=== PATIENT | male | born 1965 | race Caucasian/White ===

== ENCOUNTER 2020-09-13 18:55 | Emergency (ER) | payer OTHER ==
[~2020-09-13] VITALS: Ht 178 cm; Wt 122.5 kg
[2020-09-13 19:35] LABS: ALBUMIN 3.7 GM/DL (3.2-4.5); BASOPHILS % (AUTO) 0 % (0-10); EOSINOPHILS % (AUTO) 0 % (0-10); HEMATOCRIT 48 % (40-54); HEMOGLOBIN 16.6 g/dL (13.3-17.7); LYMPHOCYTES # (AUTO) 1.6 10^3/uL (1.0-4.0); LYMPHOCYTES % (AUTO) 22 % (12-44); MEAN CORPUSCULAR HEMOGLOBIN 31 pg (25-34); MEAN CORPUSCULAR HGB CONC 34 g/dL (32-36); MEAN CORPUSCULAR VOLUME 90 fL (80-99); MEAN PLATELET VOLUME 9.5 fL (9.0-12.2); MONOCYTES # (AUTO) 0.8 10^3/uL (0.0-1.0); MONOCYTES % (AUTO) 10 % (0-12); NEUTROPHILS # (AUTO) 4.8 10^3/uL (1.8-7.8); NEUTROPHILS % (AUTO) 65 % (42-75); PLATELET COUNT 250 10^3/uL (130-400); POTASSIUM 3.9 MMOL/L (3.6-5.0); WHITE BLOOD COUNT 7.4 10^3/uL (4.3-11.0)
[2020-09-13 19:36] LABS: CALCIUM 8.7 MG/DL (8.5-10.1)
[2020-09-13 19:38] LABS: TOTAL PROTEIN 7.6 GM/DL (6.4-8.2)
[2020-09-13 19:39] LABS: BILIRUBIN,TOTAL 0.5 MG/DL (0.1-1.0)
[2020-09-13 19:41] LABS: CREATININE SERUM 0.96 MG/DL (0.60-1.30)
--- NOTE | 2020-09-13 20:58 | ED Cough/URI ---
General Chief Complaint: Fever-Adult/Adol Stated Complaint: COVID POSITIVE - COUGH/ FEVER/ HEADACHE Nursing Triage Note: FEVER/FATIGUE, HEADACHE, INTERMITTANT COUGH. SX BEGAN 09/09/20, TESTED COVID + 09/10/20 Source: patient Exam Limitations: no limitations (KLAUS PAL APRN) History of Present Illness Date Seen by Provider: Sep 13, 2020 Time Seen by Provider: 20:57 Initial Comments Covid positive with fever cough and headache. Symptoms began on the tested positive on the Timing/Duration: getting worse Severity/Quality: dry cough Prior Episodes/Possible Cause: no prior episodes Associated Symptoms: denies symptoms, cough (KLAUS PAL APRN) Allergies and Home Medications Allergies Coded Allergies: No Known Drug Allergies (Unverified , 09/13/20) Home Medications No Active Prescriptions or Reported Meds Patient Home Medication List Home Medication List Reviewed: Yes (KLAUS PAL APRN) Review of Systems Review of Systems Constitutional: see HPI, chills, fever EENTM: see HPI Respiratory: no symptoms reported, see HPI, cough Cardiovascular: no symptoms reported Genitourinary: no symptoms reported Musculoskeletal: no symptoms reported Skin: no symptoms reported Psychiatric/Neurological: See HPI, Headache Hematologic/Lymphatic: No Symptoms Reported (KLAUS PAL APRN) Past Mxjfwxm-Aztqjb-Arowtj Hx Patient Social History Tobacco Use?: No Substance use?: No Alcohol Use?: No Pt feels they are or have been: No (KLAUS PAL APRN) Past Medical History Surgery/Hospitalization HX: APPY, KNEE (KLAUS PAL APRN) Physical Exam Vital Signs - First Documented 09/13/20 19:04 Temp 37.0 Pulse 95 Resp 18 B/P (MAP) 107/82 (90) Pulse Ox 93 O2 Delivery Room Air (ROB DOW MD) Capillary Refill : Less Than 3 Seconds (KLAUS PAL APRN) Height: '" Weight: lbs. oz. kg; 38.00 BMI Method: General Appearance: WD/WN, no apparent distress, other (91 to 93% on room air heart rate 81) Eyes: Bilateral Eye Normal Inspection, Bilateral Eye PERRL, Bilateral Eye EOMI HEENT: PERRL/EOMI, normal ENT inspection Neck: non-tender, full range of motion Respiratory: normal breath sounds, no respiratory distress, no accessory muscle use Cardiovascular: regular rate, rhythm, no murmur Gastrointestinal: normal bowel sounds, non tender, soft Neurologic/Psychiatric: alert, normal mood/affect, oriented x 3 Skin: normal color, warm/dry (KLAUS PAL APRN) Progress/Results/Core Measures Suspected Sepsis SIRS Temperature: Pulse: 95 Respiratory Rate: 18 Laboratory Tests 09/13/20 19:17: White Blood Count 7.4 Blood Pressure 107 /82 Mean: 90 Laboratory Tests 09/13/20 19:17: Creatinine 0.96, Platelet Count 250, Total Bilirubin 0.5 (KLAUS PAL APRN) Results/Orders Lab Results Laboratory Tests Test 09/13/20 19:17 Range/Units White Blood Count 7.4 4.3-11.0 10^3/uL Red Blood Count 5.36 4.30-5.52 10^6/uL Hemoglobin 16.6 13.3-17.7 g/dL Hematocrit 48 40-54 % Mean Corpuscular Volume 90 80-99 fL Mean Corpuscular Hemoglobin 31 25-34 pg Mean Corpuscular Hemoglobin Concent 34 32-36 g/dL Red Cell Distribution Width 12.4 10.0-14.5 % Platelet Count 250 130-400 10^3/uL Mean Platelet Volume 9.5 9.0-12.2 fL Immature Granulocyte % (Auto) 3 % Neutrophils (%) (Auto) 65 42-75 % Lymphocytes (%) (Auto) 22 12-44 % Monocytes (%) (Auto) 10 0-12 % Eosinophils (%) (Auto) 0 0-10 % Basophils (%) (Auto) 0 0-10 % Neutrophils # (Auto) 4.8 1.8-7.8 10^3/uL Lymphocytes # (Auto) 1.6 1.0-4.0 10^3/uL Monocytes # (Auto) 0.8 0.0-1.0 10^3/uL Eosinophils # (Auto) 0.0 0.0-0.3 10^3/uL Basophils # (Auto) 0.0 0.0-0.1 10^3/uL Immature Granulocyte # (Auto) 0.2 H 0.0-0.1 10^3/uL Sodium Level 133 L 135-145 MMOL/L Potassium Level 3.9 3.6-5.0 MMOL/L Chloride Level 98 98-107 MMOL/L Carbon Dioxide Level 22 21-32 MMOL/L Anion Gap 13 5-14 MMOL/L Blood Urea Nitrogen 15 7-18 MG/DL Creatinine 0.96 0.60-1.30 MG/DL Estimat Glomerular Filtration Rate 81 BUN/Creatinine Ratio 16 Glucose Level 234 H 70-105 MG/DL Calcium Level 8.7 8.5-10.1 MG/DL Corrected Calcium 8.9 8.5-10.1 MG/DL Total Bilirubin 0.5 0.1-1.0 MG/DL Aspartate Amino Transf (AST/SGOT) 43 H 5-34 U/L Alanine Aminotransferase (ALT/SGPT) 42 0-55 U/L Alkaline Phosphatase 90 40-136 U/L C-Reactive Protein High Sensitivity 3.19 H 0.00-0.50 MG/DL Total Protein 7.6 6.4-8.2 GM/DL Albumin 3.7 3.2-4.5 GM/DL Procalcitonin 0.13 H <0.10 NG/ML (ROB DOW MD) My Orders Orders - ROB DOW MD Cbc With Automated Diff (09/13/20 18:58) Comprehensive Metabolic Panel (09/13/20 18:58) Hs C Reactive Protein (09/13/20 18:58) Procalcitonin (Pct) (09/13/20 18:58) Ed Iv/Invasive Line Start (09/13/20 18:58) (ROB DOW MD) Medications Given in ED Current Medications Medications Dose Ordered Sig/Nelsy Route Start Time Stop Time Status Last Admin Dose Admin Acetaminophen/ Hydrocodone Bitart 1 ea Q4H PRN PO 09/13/20 21:15 09/13/20 21:28 DC 09/13/20 21:23 1 EA (ROB DOW MD) Vital Signs/I&O 09/13/20 09/13/20 19:04 21:24 Temp 37.0 36.9 Pulse 95 78 Resp 18 18 B/P (MAP) 107/82 (90) 112/76 (90) Pulse Ox 93 96 O2 Delivery Room Air Room Air (ROB DOW MD) Vital Signs/I&O Capillary Refill : Less Than 3 Seconds (KLAUS PAL APRN) Blood Pressure Mean: 90 Departure Communication (Admissions) Discussed with him the emergency use authorization of Regeneron, the alternatives of treatment and he would like to proceed with using it. Information faxed to pharmacy. (KLAUS PAL APRN) Impression Primary Impression: COVID-19 Disposition: 01 HOME, SELF-CARE Condition: Stable Departure-Patient Inst. Decision time for Depature: 21:00 (KLAUS PAL APRN) Patient Instructions: COVID-19 (DC) Add. Discharge Instructions: 1. Tylenol and ibuprofen for fevers chills and body aches. Scheduling department will call you tomorrow morning for an appointment tomorrow for a Regeneron infusion. All discharge instructions reviewed with patient and/or family. Voiced understanding. Scripts No Active Prescriptions or Reported Meds ATTENDING PHYSICIAN NOTE: I was physically present as attending physician in the emergency department during the care of this patient, but I was not directly involved in the decision making or delivery of care for this patient. (ROB DOW MD) KLAUS PAL APRN Sep 13, 2020 20:58 ROB DOW MD Sep 14, 2020 06:45
--- NOTE | 2020-09-13 21:02 | Diagnostic Imaging Report ---
INDICATION: Covid +. TECHNIQUE: Single view chest 8:56 PM. CORRELATION STUDY: None FINDINGS: The heart size, mediastinal configuration and pulmonary vascularity are within normal limits. Mild patchy opacities noted particularly in the central aspect of both lung thakakr. Slight asymmetrically elevated right diaphragm. IMPRESSION: 1. Bilateral pulmonary opacities particularly in the mid lung thakkar favors multilobe pneumonia which would include potential Covid pneumonia. Dictated by: Dictated on workstation # [id number]
[2020-09-13 21:24] VITALS: BP 112/76
== END 2020-09-13 21:28 | disposition home or self-care (01) ==
LOC: ER 18:57
DX: U07.1 COVID-19 (principal)
CPT/HCPCS: 36415; 71045; 80053; 84145; 85025; 86141

== ENCOUNTER → 2020-09-16 | Outpatient (CLI) | payer OTHER ==
[~2020-09-16] VITALS: Ht 177.8 cm; Wt 113.0 kg
[~2020-09-16] MED LIST: CASIRIVIMAB/IMDEVIMAB 1,200 MG in NS (IVPB) 250 ML IV ONE; EPINEPHrine INJECTION 1 MG/ML AMP IM PRN; diphenhydrAMINE 50 MG/ML INJ (BENADRYL) IV PRN
[2020-09-16 10:35] VITALS: BP 129/77
[2020-09-16 11:31] VITALS: BP 115/67
== END ==
LOC: INFUSION 10:26
PROVIDERS: ATTEND Nurse Practitioner Family
DX: Z23 Encounter for immunization (principal); U07.1 COVID-19